=== PATIENT | female | born 2000 ===

== ENCOUNTER 2022-02-17 12:55 | Inpatient (IN) ==
[2022-02-17] MEDS: LACTATED RINGERS 1,000 ML IV SCH (12:59)
[2022-02-17] MEDS ORDERED: METHYLERGONOVINE 0.2 MG/1 ML AMP IM PRN (13:00)
[2022-02-17] MEDS ORDERED: TRANEXAMIC ACID 1,000 MG in SODIUM CHLORIDE 0.9% 100 ML IV PRN (13:00)
[2022-02-17] MEDS ORDERED: ONDANSETRON 4 MG/2 ML VIAL IV PRN ×2 (13:00→19:09)
[2022-02-17] MEDS ORDERED: CARBOPROST TROMETHAMINE 250 MCG/ML AMP IM PRN (13:00)
[2022-02-17] MEDS ORDERED: miSOPROStoL 200 MCG TABLET RECTAL PRN (13:00)
[2022-02-17] MEDS ORDERED: OXYTOCIN/LR 20 UNIT/1,000 ML BAG IV ONE ×2 (13:00→19:09)
[2022-02-17] MEDS ORDERED: ceFAZolin 2,000 MG/50 ML DUPLEX IV ONE (13:03)
[2022-02-17] MEDS ORDERED: FAMOTIDINE 20 MG/2 ML VIAL IV ONE (13:03)
[2022-02-17] MEDS ORDERED: CITRIC ACID/SODIUM CITRATE 30 ML UDCUP PO ONE (13:03)
[2022-02-17] MEDS ORDERED: OXYTOCIN 10 UNIT/ML VIAL IM ONE (13:06)
[2022-02-17] MEDS ORDERED: OXYTOCIN/LR 30 UNIT/1,000 ML BAG IV ONE (13:06)
[2022-02-17] MEDS ORDERED: ONDANSETRON 4 MG/2 ML VIAL IV ONE (13:30)
[2022-02-17] MEDS ORDERED: MEPERIDINE 50 MG/1 ML VIAL IV ONE (13:30)
[2022-02-17] MEDS ORDERED: TERBUTALINE 1 MG/1 ML VIAL SUBCUT ONE (13:37)
[2022-02-17 13:41] LABS: Bilirubin,Total 1.2 MG/DL (0.20-1.00); Potassium 3.7 MMOL/L (3.5-5.1); Total Protein 6.6 G/DL (6.4-8.2)
[2022-02-17] MEDS ORDERED: BUPIVACAINE SPINAL 0.75% 2 ML AMP SPINAL ONE (13:43)
[2022-02-17] MEDS ORDERED: buprenorphine HCL 0.3 MG/ML VIAL ONE (13:43)
[2022-02-17 13:47] LABS: Basophils % 0.7 % (0.0-0.8); Eosinophils # 0.1 10*3/uL (0.0-0.87); Eosinophils % 1.2 % (0.00-10.9); Hematocrit 37.7 VOL% (35.7-47.0); Hemoglobin 12.5 GM/DL (12.0-16.0); Immature Granulocytes % 0.7 %; Immature Granulocytes Absolute 0.04 #; Lymphocytes # 1.2 10*3/uL (1.4-4.0); Lymphocytes % 19.4 % (21.3-54.2); Mean Corpuscular HGB Conc 33.2 GM/DL (32-36); Mean Corpuscular Volume 86.3 FL (87-102); Mean Platelet Volume 10.5 FL (9.6-12.0); Monocytes # 0.4 10*3/uL (0.11-0.8); Monocytes % 6.4 % (1.7-12.7); Neutrophils % 71.6 % (38.7-73.9); Platelet Count 259 T/CUMM (130-400); Red Blood Count 4.37 MC/CUMM (3.8-5.5); Red Cell Distribution Width 14.1 % (9.3-17.3); White Blood Count 6.1 T/CUMM (4-12)
[2022-02-17 14:02] LABS: Bacteria,Urine Occasional /HPF (Few); Mucus,Urine Occasional /LPF (Occasional); RBC,Urine <1 /HPF (0-4); Squamous Epithelial Cell,Urine Occasional /HPF (0-10)
[2022-02-17 14:03] LABS: Bilirubin,Urine Negative (Negative); Blood, Urine Negative (Negative); Glucose,Urine (UA) Negative (Negative); Ketones,Urine Negative (Negative); Nitrite,Urine Negative (Negative); Protein,Urine Negative (Negative); Urine Appearance Clear (Clear); Urine Color Yellow (Yellow)
[2022-02-17] MEDS ORDERED: GLYCOPYRROLATE 0.4 MG/2 ML VIAL ONE (14:03)
[2022-02-17] MEDS ORDERED: PHENYLEPHRINE 1 MG/10 ML SYRINGE IV ONE (14:03)
[2022-02-17] MEDS ORDERED: KETOROLAC 30 MG/1 ML VIAL ONE (14:03)
[2022-02-17] MEDS ORDERED: ONDANSETRON 4 MG/2 ML VIAL ONE (14:03)
[2022-02-17 14:19] LABS: Lymphocytes 20 % (20-55); Total Cells Counted 100
[2022-02-17 14:20] LABS: Platelet Estimate Normal
[2022-02-17 14:31] LABS: Barbiturates Screen,Urine Negative (Negative); Benzodiazepines Screen,Urine Negative (Negative); Cannabinoid Screen,Urine Negative (Negative); Opiate Screen,Urine Negative (Negative); Phencyclidine Screen,Urine Negative (Negative)
[2022-02-17] MEDS ORDERED: diphenhydrAMINE 50 MG/1 ML VIAL IV PRN (14:38)
[2022-02-17] MEDS ORDERED: hydrOXYzine HCL 25 MG/1 ML VIAL IM PRN (14:38)
[2022-02-17] MEDS ORDERED: HYDROmorphone 1 MG/1 ML SYRINGE IV PRN (14:38)
[2022-02-17 14:52] LABS: Cord Arterial Blood HCO3 20.6 MMOL/L
[2022-02-17 14:55] LABS: Cord Venous Blood PCO2 46.8 MMHG; Cord Venous Blood PO2 34.7
[2022-02-17] MEDS ORDERED: WITCH HAZEL PADS 100/JAR TOP PRN (19:09)
[2022-02-17] MEDS ORDERED: oxyCODONE/ACETAMINOPHEN 5-325 MG TABLET PO PRN (19:09)
[2022-02-17] MEDS ORDERED: BISACODYL 10 MG SUPP RECTAL PRN (19:09)
[2022-02-17] MEDS ORDERED: ACETAMINOPHEN 325 MG TABLET PO PRN (19:09)
[2022-02-17 20:40] LABS: Basophils % 0.4 % (0.0-0.8); Eosinophils # 0.1 10*3/uL (0.0-0.87); Eosinophils % 0.6 % (0.00-10.9); Hematocrit 36.3 VOL% (35.7-47.0); Hemoglobin 11.8 GM/DL (12.0-16.0); Immature Granulocytes % 0.5 %; Immature Granulocytes Absolute 0.05 #; Lymphocytes # 1.1 10*3/uL (1.4-4.0); Lymphocytes % 11.1 % (21.3-54.2); Mean Corpuscular HGB Conc 32.5 GM/DL (32-36); Mean Platelet Volume 10.4 FL (9.6-12.0); Monocytes # 0.6 10*3/uL (0.11-0.8); Monocytes % 6.1 % (1.7-12.7); Neutrophils % 81.3 % (38.7-73.9); Platelet Count 268 T/CUMM (130-400); Red Blood Count 4.08 MC/CUMM (3.8-5.5); Red Cell Distribution Width 14.2 % (9.3-17.3); White Blood Count 10.1 T/CUMM (4-12)
[2022-02-17] MEDS: ACETAMINOPHEN 500 MG TABLET PO SCH (21:04)
[2022-02-17] MEDS: DOCUSATE SODIUM 100 MG CAPSULE PO SCH (21:05)
[2022-02-17] MEDS: KETOROLAC 30 MG/1 ML VIAL IV SCH (21:09)
[2022-02-18] MEDS: LACTATED RINGERS 1,000 ML IV SCH (00:56)
[2022-02-18] MEDS: KETOROLAC 30 MG/1 ML VIAL IV SCH ×2 (02:29→09:07)
[2022-02-18] MEDS: ACETAMINOPHEN 500 MG TABLET PO SCH ×3 (02:30→16:00)
[2022-02-18 05:01] LABS: Basophils % 0.5 % (0.0-0.8); Eosinophils # 0.1 10*3/uL (0.0-0.87); Eosinophils % 1.4 % (0.00-10.9); Hematocrit 31.2 VOL% (35.7-47.0); Hemoglobin 10.1 GM/DL (12.0-16.0); Immature Granulocytes % 0.6 %; Immature Granulocytes Absolute 0.05 #; Lymphocytes # 1.5 10*3/uL (1.4-4.0); Lymphocytes % 18.6 % (21.3-54.2); Mean Corpuscular HGB Conc 32.4 GM/DL (32-36); Mean Corpuscular Volume 88.4 FL (87-102); Mean Platelet Volume 10.6 FL (9.6-12.0); Monocytes # 0.5 10*3/uL (0.11-0.8); Monocytes % 5.9 % (1.7-12.7); Platelet Count 212 T/CUMM (130-400); Red Blood Count 3.53 MC/CUMM (3.8-5.5); Red Cell Distribution Width 14.5 % (9.3-17.3)
[2022-02-18] MEDS: DOCUSATE SODIUM 100 MG CAPSULE PO SCH ×3 (09:04→21:51)
[2022-02-18 09:41] LABS: Albumin 1.4 G/DL (3.4-5.0); Bilirubin,Total 1.3 MG/DL (0.20-1.00); Calcium 8.4 MG/DL (8.5-10.1); Osmolality,Calculated 272.5 MOS/KG (273-304); Potassium 3.6 MMOL/L (3.5-5.1); Total Protein 4.8 G/DL (6.4-8.2)
[2022-02-18] MEDS: oxyCODONE/ACETAMINOPHEN 5-325 MG TABLET PO PRN (18:31)
[2022-02-18] MEDS ORDERED: SIMETHICONE CHEW 80 MG TABLET PO PRN (19:03)
[2022-02-18] MEDS: IBUPROFEN 800 MG TABLET PO PRN (19:34)
[2022-02-18] MEDS: MAGNESIUM HYDROXIDE SUSP 30 ML UDCUP PO PRN (19:35)
[2022-02-18] MEDS: METOCLOPRAMIDE 10 MG TABLET PO SCH (19:35)
[2022-02-18 23:15] LABS: HIV Antigen/Antibody Result Nonreactive (Nonreactive); Hepatitis B Surface Ag Quant < 0.10 Index; Hepatitis B Surface Ag Result Non-Reactive (NonReactive)
[2022-02-19] MEDS: IBUPROFEN 800 MG TABLET PO PRN ×3 (01:06→15:12)
[2022-02-19] MEDS: METOCLOPRAMIDE 10 MG TABLET PO SCH ×3 (04:17→20:07)
[2022-02-19 08:19] LABS: Free T4 (Free Thyroxine) 1.08 NG/DL (0.76-1.46); Thyroid Stimulating Hormone 2.91 uIU/ml (0.358-3.74)
[2022-02-19] MEDS: MAGNESIUM HYDROXIDE SUSP 30 ML UDCUP PO PRN (09:44)
[2022-02-19] MEDS: DOCUSATE SODIUM 100 MG CAPSULE PO SCH ×2 (09:44→20:07)
[2022-02-19] MEDS: oxyCODONE/ACETAMINOPHEN 5-325 MG TABLET PO PRN (20:08)
[2022-02-20] MEDS: IBUPROFEN 800 MG TABLET PO PRN ×4 (02:02→21:32)
[2022-02-20] MEDS: METOCLOPRAMIDE 10 MG TABLET PO SCH ×3 (03:49→21:45)
[2022-02-20] MEDS: DOCUSATE SODIUM 100 MG CAPSULE PO SCH (08:28)
[2022-02-20] MEDS: oxyCODONE/ACETAMINOPHEN 5-325 MG TABLET PO PRN ×3 (08:30→21:33)
[2022-02-20 20:39] VITALS: BP 113/53
== END 2022-02-20 21:57 | disposition home or self-care (01) | DRG 540 ==
LOC: N.LD 12:55 → N.OB 22:01
PROVIDERS: ADMIT Obstetrics & Gynecology; ATTEND Obstetrics & Gynecology
PROC: LDCSECT (ICD-10-PCS; 2022-02-17 13:10)